=== PATIENT | female | born 1970 | race Caucasian/White ===

== ENCOUNTER 2020-01-21 12:28 | Emergency (ER) | payer MEDICARE, MEDICAID ==
[~2020-01-21] VITALS: Ht 167.6 cm; Wt 57.3 kg
[2020-01-21] MEDS ORDERED: NICO1DIS10 (12:39)
[2020-01-21] MEDS ORDERED: IBUP-1114 PO (12:39)
[2020-01-21] MEDS ORDERED: PARO20TA3 (12:39)
--- NOTE | 2020-01-21 13:44 | REPVR ---
PROCEDURE INFORMATION: Exam: XR Left Tibia and Fibula Exam date and time: 01/21/2020 12:57 PM Age: 49 years old Clinical indication: Pain; Lower leg; Left TECHNIQUE: Imaging protocol: XR Left tibia and fibula. Views: 2 views. COMPARISON: No relevant prior studies available. FINDINGS: Bones/joints: The visualized osseous structures are unremarkable. No acute fracture or dislocation is seen. The joint space is well maintained and no significant degenerative arthritic changes or erosions or joint effusion is seen. Soft tissues: There is mild soft tissue swelling. No radiopaque foreign body seen. IMPRESSION: No acute fracture or dislocation is seen. Electronically signed by: Keenan Baldwin On 01/21/2020 13:44:47 PM
--- NOTE | 2020-01-21 13:47 | REPVR ---
PROCEDURE INFORMATION: Exam: XR Left Foot Complete Exam date and time: 01/21/2020 12:57 PM Age: 49 years old Clinical indication: Pain; Foot; Left TECHNIQUE: Imaging protocol: XR Left foot. Views: 3 or more views. COMPARISON: No relevant prior studies available. 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 Suspicious chronic healed fractures are also noted involving the base of the 3rd and 5th metatarsals. The remainder of the visualized osseous structures are unremarkable. No acute fracture or dislocation is seen. Soft tissues: There is mild soft tissue swelling. IMPRESSION: 1. 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 Suspicious chronic healed fractures are also noted involving the base of the 3rd and 5th metatarsals. 2. The remainder of the visualized osseous structures are unremarkable. No acute fracture or dislocation is seen. Electronically signed by: Keenan Baldwin On 01/21/2020 13:47:34 PM
[2020-01-21] MEDS ORDERED: ACETAMINOPHEN 500 MG TAB PO ONE (14:15)
[2020-01-21 14:44] LABS: BASO # 0.1 10^3/uL (0.0-0.2); BASO % 0.6 % (0.0-1.0); EOS # 0.1 10^3/uL (0.0-0.5); EOS % 1.1 % (0.0-3.0); HEMOGLOBIN 14.6 g/dl (12.0-15.5); LYMPH # 2.7 10^3/uL (1.5-5.0); LYMPH % 26.6 % (24.0-44.0); MEAN CORPUSCULAR HEMOGLOBIN 31.7 pg (27.0-33.0); MEAN CORPUSCULAR HGB CONC 33.2 g/dl (32.0-36.5); MEAN CORPUSCULAR VOLUME 95.7 fl (80.0-96.0); MONO # 0.7 10^3/uL (0.0-0.8); MONO % 6.6 % (0.0-5.0); NEUTROPHILS # 6.6 10^3/uL (1.5-8.5); NEUTROPHILS % 64.7 % (36.0-66.0); PLATELET COUNT, AUTOMATED 287 10^3/uL (150-450); WHITE BLOOD COUNT 10.2 10^3/uL (4.0-10.0)
--- NOTE | 2020-01-21 15:09 | REPVR ---
PROCEDURE INFORMATION: Exam: XR Left Ankle Exam date and time: 01/21/2020 2:14 PM Age: 49 years old Clinical indication: Injury or trauma; Fall; Sprain or strain; Ankle; Left; Additional info: Left ankle pain/swelling TECHNIQUE: Imaging protocol: XR Left ankle. Views: 3 or more views. COMPARISON: CR Foot, complete LEFT 01/21/2020 1:02 PM FINDINGS: Bones/joints: The visualized osseous structures are unremarkable. No acute fracture or dislocation is seen. There are mild degenerative osteo-arthritic changes with joint space narrowing and osteophyte formation. Soft tissues: There is mild soft tissue swelling. IMPRESSION: No acute fracture or dislocation is seen. Electronically signed by: Keenan Baldwin On 01/21/2020 15:09:34 PM
--- NOTE | 2020-01-21 15:18 | REPVR ---
PROCEDURE INFORMATION: Exam: US Duplex Left Lower Extremity Veins, Limited Exam date and time: 01/21/2020 3:14 PM Age: 49 years old Clinical indication: Pain; Foot; Left; Additional info: R/O dvt TECHNIQUE: Imaging protocol: Real-time Duplex ultrasound of the Left Lower Extremity with 2-D [place] scale, color Doppler flow and spectral waveform analysis with image documentation. Limited exam focused on the left lower extremity veins. COMPARISON: No relevant prior studies available. FINDINGS: Left deep veins: Unremarkable. The common femoral, femoral, proximal profunda femoral and popliteal veins are patent without thrombus. Normal Doppler waveforms. Normal compressibility and/or augmentation response. Left superficial veins: Unremarkable. Saphenofemoral junction is patent without thrombus. Soft tissues: Unremarkable. IMPRESSION: No evidence of deep vein thrombosis. Electronically signed by: Keenan Baldwin On 01/21/2020 15:18:06 PM
[2020-01-21 15:30] LABS: ERYTHROCYTE SEDIMENTATION RATE 12 mm/hr (0-20)
[2020-01-21] MEDS ORDERED: KEFL500C17 PO (15:50)
[2020-01-21 15:59] VITALS: BP 103/73
== END 2020-01-21 16:09 | disposition home or self-care (01) ==
LOC: M ED 12:28
DX: S93.402A Sprain of unspecified ligament of left ankle, initial encounter (principal); S90.32XA Contusion of left foot, initial encounter; L03.116 Cellulitis of left lower limb; W01.0XXA Fall on same level from slipping, tripping and stumbling without subsequent striking against object, initial encounter; Y92.9 Unspecified place or not applicable; Y93.9 Activity, unspecified; Y99.9 Unspecified external cause status; F41.9 Anxiety disorder, unspecified; F17.200 Nicotine dependence, unspecified, uncomplicated; Z87.81 Personal history of (healed) traumatic fracture

== ENCOUNTER → 2022-01-09 | Outpatient (CLI) | payer MEDICARE, MEDICAID ==
[~2022-01-09] MED LIST: GABA-1171; GABA-282 PO; IBUP-1022 PO; IBUP-1114 PO; KEFL500C17 PO; NICO1DIS10; NORC1TAB7 PO; PARO20TA3; PARO20TA4 PO
== END ==
LOC: M WUC 10:05
PROVIDERS: ATTEND Nurse Practitioner Family
DX: K59.00 Constipation, unspecified (principal)

== ENCOUNTER → 2022-01-17 | Outpatient (CLI) | payer MEDICARE, MEDICAID | LOC: M RAD 13:58 | PROVIDERS: ATTEND Nurse Practitioner Family | DX: Z12.2 Encounter for screening for malignant neoplasm of respiratory organs (principal); J43.9 Emphysema, unspecified; F17.200 Nicotine dependence, unspecified, uncomplicated; J47.9 Bronchiectasis, uncomplicated; R91.1 Solitary pulmonary nodule ==

== ENCOUNTER → 2022-02-08 | Outpatient (CLI) | payer MEDICARE, MEDICAID ==
[~2022-02-08] MED LIST changes: +GASTROGRAFIN SOLUTION 30ML (Q9963) As Ordered ONE; +ISOVUE-370 76% 100ML VIAL As Ordered ONE
== END ==
LOC: M RAD 14:46
PROVIDERS: ATTEND Physician Assistant
DX: R91.1 Solitary pulmonary nodule (principal); K44.9 Diaphragmatic hernia without obstruction or gangrene; R10.9 Unspecified abdominal pain; R11.2 Nausea with vomiting, unspecified; K59.00 Constipation, unspecified; K76.0 Fatty (change of) liver, not elsewhere classified; Z90.710 Acquired absence of both cervix and uterus; I25.10 Atherosclerotic heart disease of native coronary artery without angina pectoris; N28.1 Cyst of kidney, acquired
CPT/HCPCS: 74178; Q9963; Q9967

== ENCOUNTER → 2022-02-23 | Outpatient (CLI) | payer MEDICARE, MEDICAID ==
[~2022-02-23] MED LIST changes: +FOLI1TAB11 PO; -GASTROGRAFIN SOLUTION 30ML (Q9963) As Ordered ONE; -ISOVUE-370 76% 100ML VIAL As Ordered ONE; +VITA200032 PO
== END ==
LOC: M LABSMTC 11:07
PROVIDERS: ATTEND Anesthesiology
DX: Z01.812 Encounter for preprocedural laboratory examination (principal); Z20.822 Contact with and (suspected) exposure to COVID-19

== ENCOUNTER 2022-02-28 08:11 | Day surgery (SDC) | payer MEDICARE, MEDICAID ==
[~2022-02-28] VITALS: Ht 170.2 cm; Wt 57.2 kg
[~2022-02-28 08:11] MED LIST changes: +LIDOCAINE 2% 100MG/5ML SDV (FOR ANES.) As Ordered ONE; +NS 1,000 ML IV ONE; +propofoL 200 MG/20 ML VIAL As Ordered ONE
[2022-02-28] MEDS ORDERED: ECOT81TA5 PO (08:32)
[2022-02-28 10:31] VITALS: BP 140/79
== END 2022-02-28 10:32 | disposition home or self-care (01) ==
LOC: M OPP 08:11
PROVIDERS: ATTEND Surgery
DX: D12.6 Benign neoplasm of colon, unspecified (principal); K62.1 Rectal polyp; K62.89 Other specified diseases of anus and rectum; K29.60 Other gastritis without bleeding; Z80.0 Family history of malignant neoplasm of digestive organs; K59.00 Constipation, unspecified; R63.4 Abnormal weight loss; R11.2 Nausea with vomiting, unspecified; Z79.82 Long term (current) use of aspirin; Z79.899 Other long term (current) drug therapy; F17.200 Nicotine dependence, unspecified, uncomplicated; F41.9 Anxiety disorder, unspecified; F32.9 Major depressive disorder, single episode, unspecified; E78.00 Pure hypercholesterolemia, unspecified; Z80.1 Family history of malignant neoplasm of trachea, bronchus and lung; Z80.42 Family history of malignant neoplasm of prostate; Z86.73 Personal history of transient ischemic attack (TIA), and cerebral infarction without residual deficits

== ENCOUNTER → 2022-04-13 | Outpatient (CLI) | payer MEDICARE, MEDICAID ==
[~2022-04-13] MED LIST changes: +ECOT81TA5 PO; -LIDOCAINE 2% 100MG/5ML SDV (FOR ANES.) As Ordered ONE; -NS 1,000 ML IV ONE; -propofoL 200 MG/20 ML VIAL As Ordered ONE
== END ==
LOC: M WHC 12:32
PROVIDERS: ATTEND Nurse Practitioner Family
DX: Z12.31 Encounter for screening mammogram for malignant neoplasm of breast (principal)

== ENCOUNTER 2022-05-31 09:01 | Emergency (ER) | payer MEDICARE, MEDICAID ==
[~2022-05-31] VITALS: Ht 165.1 cm; Wt 56.4 kg
[2022-05-31] MEDS ORDERED: PANT40TA29 (09:12)
[2022-05-31] MEDS ORDERED: LIDOCAINE 5% OINT 30GM TUBE TOP STA (11:51)
[2022-05-31 11:58] LABS: BASO # 0.1 10^3/uL (0.0-0.2); BASO % 0.5 % (0.0-1.0); EOS # 0.1 10^3/uL (0.0-0.5); EOS % 0.6 % (0.0-3.0); HEMATOCRIT 41.2 % (36.0-47.0); HEMOGLOBIN 13.6 g/dl (12.0-15.5); LYMPH # 1.9 10^3/uL (1.5-5.0); LYMPH % 19.2 % (24.0-44.0); MEAN CORPUSCULAR HEMOGLOBIN 30.2 pg (27.0-33.0); MEAN CORPUSCULAR VOLUME 91.4 fl (80.0-96.0); MONO # 0.5 10^3/uL (0.0-0.8); MONO % 5.3 % (2.0-8.0); NEUTROPHILS # 7.4 10^3/uL (1.5-8.5); NEUTROPHILS % 74.2 % (36.0-66.0); PLATELET COUNT, AUTOMATED 294 10^3/uL (150-450); RED BLOOD COUNT 4.51 10^6/uL (4.00-5.40)
[2022-05-31 12:20] LABS: ERYTHROCYTE SEDIMENTATION RATE 22 mm/hr (0-30)
[2022-05-31 12:26] LABS: BLOOD UREA NITROGEN 7 MG/DL (9-23); CALCIUM LEVEL 8.7 MG/DL (8.5-10.1); CARBON DIOXIDE LEVEL 28 MMOL/L (20-31); CHLORIDE LEVEL 103 MMOL/L (98-107); CREATININE FOR GFR 0.81 MG/DL (0.55-1.30); GLOMERULAR FILTRATION RATE > 60.0 (>51); GLUCOSE, FASTING 101 MG/DL (60-100); POTASSIUM SERUM 4.2 MMOL/L (3.5-5.1); SODIUM LEVEL 136 MMOL/L (136-145)
[2022-05-31] MEDS ORDERED: COLA100C5 PO (13:16)
[2022-05-31 13:47] VITALS: BP 117/75
== END 2022-05-31 13:49 | disposition home or self-care (01) ==
LOC: M ED 09:01
DX: K62.3 Rectal prolapse (principal); F17.200 Nicotine dependence, unspecified, uncomplicated; Z79.82 Long term (current) use of aspirin; Z79.899 Other long term (current) drug therapy

== ENCOUNTER → 2024-06-03 | Outpatient (CLI) | payer MEDICARE, MEDICAID ==
[~2024-06-03] MED LIST changes: +COLA100C5 PO; +GABA-1172 PO; -GABA-282 PO; +PANT40TA29
== END ==
LOC: M WUC 11:13
PROVIDERS: ATTEND Physician Assistant
DX: J06.9 Acute upper respiratory infection, unspecified (principal); R06.02 Shortness of breath; R05.9 Cough, unspecified; J43.9 Emphysema, unspecified; J84.9 Interstitial pulmonary disease, unspecified

== ENCOUNTER 2024-06-11 05:27 | Inpatient (IN) | payer MEDICARE, MEDICAID ==
[~2024-06-11] VITALS: Ht 167.6 cm; Wt 59.0 kg
[~2024-06-11 05:27] MED LIST changes: -PANT40TA29; +PANT40TA29 PO
[2024-06-11] MEDS: IPRATROPIUM 0.5MG/ALBUTEROL 2.5MG INH SOL UD 3ML (DUONEB) NEB ONE ×2 (05:59)
[2024-06-11 06:07] LABS: VENOUS BASE EXCESS 0.5 (-2.0-2.0); VENOUS HCO3 27.2 MMOL/L (23.0-27.0); VENOUS O2 SATURATION 84.8 % (60.0-80.0); VENOUS PARTIAL PRESSURE CO2 50.7 mmHg (38.0-50.0); VENOUS PH 7.347 UNITS (7.330-7.430); VENOUS STANDARD HCO3 24.6 MMOL/L; VENOUS TOTAL CO2 28.7 MMOL/L (24.0-28.0)
[2024-06-11] MEDS: methylPREDNISolone 125MG 2ML VIAL IV ONE (06:09)
[2024-06-11] MEDS ORDERED: ISOVUE-370 76% 100ML VIAL As Ordered ONE (06:17)
[2024-06-11 06:20] LABS: BASO % 0.2 % (0.0-1.0); HEMATOCRIT 47.2 % (36.0-47.0); HEMOGLOBIN 16.1 g/dl (12.0-15.5); LYMPH % 4.4 % (24.0-44.0); MEAN CORPUSCULAR HEMOGLOBIN 33.2 pg (27.0-33.0); MEAN CORPUSCULAR HGB CONC 34.1 g/dl (32.0-36.5); MEAN CORPUSCULAR VOLUME 97.3 fl (80.0-96.0); MONO # 1.2 10^3/uL (0.0-0.8); MONO % 5.5 % (2.0-8.0); NEUTROPHILS # 19.3 10^3/uL (1.5-8.5); NEUTROPHILS % 88.2 % (36.0-66.0); PLATELET COUNT, AUTOMATED 368 10^3/uL (150-450); RED BLOOD COUNT 4.85 10^6/uL (4.00-5.40); WHITE BLOOD COUNT 21.8 10^3/uL (4.0-10.0)
[2024-06-11 06:41] LABS: BLOOD UREA NITROGEN 7 MG/DL (9-23); CALCIUM LEVEL 8.6 MG/DL (8.5-10.1); CARBON DIOXIDE LEVEL 28 MMOL/L (20-31); CHLORIDE LEVEL 99 MMOL/L (98-107); CREATININE FOR GFR 0.59 MG/DL (0.55-1.30); GLOMERULAR FILTRATION RATE > 60.0 (>51); GLUCOSE, FASTING 116 MG/DL (60-100); MAGNESIUM LEVEL 1.5 MG/DL (1.8-2.4); POTASSIUM SERUM 4.5 MMOL/L (3.5-5.1); SODIUM LEVEL 135 MMOL/L (136-145)
[2024-06-11] MEDS: NS (Normal Saline) 0.9% 1,000 ML IV ONE ×2 (07:05→08:00)
[2024-06-11] MEDS: AZITHROMYCIN 250MG TABLET PO ONE (07:23)
[2024-06-11] MEDS: cefTRIAXone SOD 1 GM in DEXTROSE 5% (D5W) ADV/MINI-BAG 50 ML IV ONE (07:24)
[2024-06-11] MEDS: MAG SULF 1GM/100ML (MAG RUN) 1 GM in IV 1 EA IV ONE (07:59)
[2024-06-11] MEDS: OSELTAMIVIR PHOSPHATE 75 MG CAP PO ONE (08:00)
[2024-06-11] MEDS ORDERED: VENTAER INH (08:06)
[2024-06-11] MEDS ORDERED: HOME MED LIST COMPLETE! XX SCH (08:10)
[2024-06-11] MEDS ORDERED: OSELTAMIVIR PHOSPHATE 75 MG CAP PO ONE (09:00)
[2024-06-11] MEDS: ASPIRIN 81MG ENTERIC TABLET PO SCH (10:29)
[2024-06-11] MEDS: PANTOPRAZOLE 40MG TAB (PROTONIX) PO SCH (10:29)
[2024-06-11] MEDS: MAGNESIUM OXIDE 400MG TAB (MAG-OX) PO SCH (10:29)
[2024-06-11] MEDS: PARoxetine 20MG TABLET PO SCH (10:29)
[2024-06-11 11:07] LABS: INR 0.91; PARTIAL THROMBOPLASTIN TIME 31.1 SECONDS (24.8-34.2); PROTHROMBIN TIME 12.6 SECONDS (12.5-14.5)
[2024-06-11 11:11] LABS: ALBUMIN 2.5 G/DL (3.2-5.2); ALKALINE PHOSPHATASE 134 U/L (35-104); ALT/SGPT 16 U/L (7.0-40); AST/SGOT 9 U/L (<34); BILIRUBIN,TOTAL 0.5 MG/DL (0.3-1.2); BLOOD UREA NITROGEN 6 MG/DL (9-23); CALCIUM LEVEL 8.5 MG/DL (8.5-10.1); CARBON DIOXIDE LEVEL 28 MMOL/L (20-31); CHLORIDE LEVEL 101 MMOL/L (98-107); CREATININE FOR GFR 0.53 MG/DL (0.55-1.30); GLOMERULAR FILTRATION RATE > 60.0 (>51); GLUCOSE, FASTING 129 MG/DL (60-100); POTASSIUM SERUM 4.4 MMOL/L (3.5-5.1); SODIUM LEVEL 136 MMOL/L (136-145); TOTAL PROTEIN 6.3 G/DL (5.7-8.2)
[2024-06-11 11:22] LABS: PROCALCITONIN 27.17 ng/ml
[2024-06-11] MEDS: NICOTINE 21MG/24HR 1 EA TRANSDERMAL TD SCH (11:26)
[2024-06-11] MEDS: NS (Normal Saline) 0.9% 1,000 ML IV SCH (11:26)
[2024-06-11] MEDS: LEVALBUTEROL 1.25MG 0.5ML CONCENTRATE NEB NEB SCH (11:41)
[2024-06-11] MEDS: OSELTAMIVIR PHOSPHATE 75 MG CAP PO SCH (20:53)
[2024-06-11 21:47] VITALS: BP 144/90; TEMP 98.4; O2SAT 92
[2024-06-12] VITALS (9 sets, daily range): BP systolic 115–124; BP diastolic 72–87; TEMP 97.5–98.6; O2SAT 78–94
[2024-06-12] MEDS: cefTRIAXone SOD 1 GM in DEXTROSE 5% (D5W) ADV/MINI-BAG 50 ML IV SCH (06:27)
[2024-06-12 07:51] LABS: HEMATOCRIT 44.7 % (36.0-47.0); HEMOGLOBIN 14.9 g/dl (12.0-15.5); MEAN CORPUSCULAR HEMOGLOBIN 33.1 pg (27.0-33.0); MEAN CORPUSCULAR HGB CONC 33.3 g/dl (32.0-36.5); MEAN CORPUSCULAR VOLUME 99.3 fl (80.0-96.0); PLATELET COUNT, AUTOMATED 304 10^3/uL (150-450); WHITE BLOOD COUNT 15.7 10^3/uL (4.0-10.0)
[2024-06-12 08:11] LABS: ALBUMIN 2.2 G/DL (3.2-5.2); ALKALINE PHOSPHATASE 116 U/L (35-104); ALT/SGPT 15 U/L (7.0-40); AST/SGOT 15 U/L (<34); BILIRUBIN,TOTAL 0.4 MG/DL (0.3-1.2); BLOOD UREA NITROGEN < 5 MG/DL (9-23); CALCIUM LEVEL 8.2 MG/DL (8.5-10.1); CARBON DIOXIDE LEVEL 26 MMOL/L (20-31); CHLORIDE LEVEL 108 MMOL/L (98-107); CREATININE FOR GFR 0.53 MG/DL (0.55-1.30); GLOMERULAR FILTRATION RATE > 60.0 (>51); GLUCOSE, FASTING 82 MG/DL (60-100); MAGNESIUM LEVEL 1.8 MG/DL (1.8-2.4); POTASSIUM SERUM 4.7 MMOL/L (3.5-5.1); SODIUM LEVEL 141 MMOL/L (136-145); TOTAL PROTEIN 5.9 G/DL (5.7-8.2)
[2024-06-12] MEDS: DOXYCYCLINE HYCLATE 100MG TABLET PO SCH (09:25)
[2024-06-12] MEDS: ENOXAPARIN 40MG/0.4ML SYRINGE (J1650 PER 10MG) SC SCH (09:26)
[2024-06-12] MEDS: ACETAMINOPHEN 325 MG TAB PO PRN (20:12)
[2024-06-13] VITALS (7 sets, daily range): BP systolic 108–118; BP diastolic 72–87; TEMP 97.3–97.7; O2SAT 90–96
[2024-06-13] MEDS: LEVALBUTEROL 1.25MG 0.5ML CONCENTRATE NEB NEB PRN (03:27)
[2024-06-13 06:26] LABS: HEMATOCRIT 37.8 % (36.0-47.0); MEAN CORPUSCULAR HEMOGLOBIN 33.4 pg (27.0-33.0); MEAN CORPUSCULAR HGB CONC 33.6 g/dl (32.0-36.5); MEAN CORPUSCULAR VOLUME 99.5 fl (80.0-96.0); PLATELET COUNT, AUTOMATED 279 10^3/uL (150-450); WHITE BLOOD COUNT 11.8 10^3/uL (4.0-10.0)
[2024-06-13 06:28] LABS: HEMOGLOBIN 12.7 g/dl (12.0-15.5)
[2024-06-13 06:43] LABS: ALBUMIN 1.9 G/DL (3.2-5.2); ALKALINE PHOSPHATASE 93 U/L (35-104); ALT/SGPT < 9 U/L (7.0-40); AST/SGOT < 8 U/L (<34); BILIRUBIN,TOTAL 0.4 MG/DL (0.3-1.2); BLOOD UREA NITROGEN 9 MG/DL (9-23); CALCIUM LEVEL 7.9 MG/DL (8.5-10.1); CARBON DIOXIDE LEVEL 32 MMOL/L (20-31); CHLORIDE LEVEL 104 MMOL/L (98-107); CREATININE FOR GFR 0.55 MG/DL (0.55-1.30); GLOMERULAR FILTRATION RATE > 60.0 (>51); GLUCOSE, FASTING 94 MG/DL (60-100); MAGNESIUM LEVEL 1.8 MG/DL (1.8-2.4); SODIUM LEVEL 141 MMOL/L (136-145); TOTAL PROTEIN 5.2 G/DL (5.7-8.2)
[2024-06-13 13:48] LABS: PROCALCITONIN 3.84 ng/ml
[2024-06-13] MEDS: methylPREDNISolone 125MG 2ML VIAL IV ONE (13:54)
[2024-06-14] VITALS (9 sets, daily range): BP systolic 106–108; BP diastolic 75–77; TEMP 97.2–97.3; O2SAT 83–95
[2024-06-14 06:25] LABS: HEMATOCRIT 37.6 % (36.0-47.0); HEMOGLOBIN 12.7 g/dl (12.0-15.5); MEAN CORPUSCULAR HEMOGLOBIN 33.6 pg (27.0-33.0); MEAN CORPUSCULAR HGB CONC 33.8 g/dl (32.0-36.5); MEAN CORPUSCULAR VOLUME 99.5 fl (80.0-96.0); PLATELET COUNT, AUTOMATED 267 10^3/uL (150-450); RED BLOOD COUNT 3.78 10^6/uL (4.00-5.40); WHITE BLOOD COUNT 7.2 10^3/uL (4.0-10.0)
[2024-06-14 06:52] LABS: ALKALINE PHOSPHATASE 84 U/L (35-104); ALT/SGPT < 9 U/L (7.0-40); AST/SGOT < 8 U/L (<34); BILIRUBIN,TOTAL 0.3 MG/DL (0.3-1.2); BLOOD UREA NITROGEN 10 MG/DL (9-23); CALCIUM LEVEL 8.3 MG/DL (8.5-10.1); CARBON DIOXIDE LEVEL 33 MMOL/L (20-31); CHLORIDE LEVEL 105 MMOL/L (98-107); CREATININE FOR GFR 0.52 MG/DL (0.55-1.30); GLOMERULAR FILTRATION RATE > 60.0 (>51); GLUCOSE, FASTING 104 MG/DL (60-100); POTASSIUM SERUM 4.4 MMOL/L (3.5-5.1); SODIUM LEVEL 142 MMOL/L (136-145); TOTAL PROTEIN 5.5 G/DL (5.7-8.2)
[2024-06-14] MEDS: predniSONE 20 MG TAB PO SCH (08:53)
[2024-06-14] MEDS ORDERED: PRED20TA PO (11:49)
[2024-06-14] MEDS ORDERED: CEFD300CAP PO (11:49)
[2024-06-14] MEDS ORDERED: NICO21PAT TD (11:49)
[2024-06-14] MEDS ORDERED: MAGN400T2 PO (11:49)
== END 2024-06-14 16:16 | disposition home or self-care (01) | DRG 871 ==
LOC: M ED 05:27 → M ED INP 08:47 → M MS4PR 21:45 → M MSPAV 06-12 14:39
PROVIDERS: ADMIT Internal Medicine; ATTEND Internal Medicine
DX: A41.9 Sepsis, unspecified organism (principal); J10.00 Influenza due to other identified influenza virus with unspecified type of pneumonia; J96.01 Acute respiratory failure with hypoxia; J15.9 Unspecified bacterial pneumonia; F17.200 Nicotine dependence, unspecified, uncomplicated; F41.9 Anxiety disorder, unspecified; F32.A Depression, unspecified; K21.9 Gastro-esophageal reflux disease without esophagitis; E83.42 Hypomagnesemia; E78.5 Hyperlipidemia, unspecified; Z79.52 Long term (current) use of systemic steroids; Z90.79 Acquired absence of other genital organ(s); Z79.899 Other long term (current) drug therapy; Z79.82 Long term (current) use of aspirin

== ENCOUNTER 2024-07-24 11:39 | Emergency (ER) | payer MEDICARE, MEDICAID ==
[~2024-07-24] VITALS: Ht 167.6 cm; Wt 67.7 kg
[~2024-07-24 11:39] MED LIST changes: +CEFD300CAP PO; +MAGN400T2 PO; +NICO21PAT TD; +PRED20TA PO; +VENTAER INH
[2024-07-24 11:56] VITALS: TEMP 97.3
[2024-07-24 13:46] LABS: KETONE, URINE AUTO RFX NEGATIVE (NEGATIVE); LEUKOCYTE ESTERASE UR AUTO RFX NEGATIVE (NEGATIVE); NITRITE, URINE AUTO RFX NEGATIVE (NEGATIVE); RBC, URINE AUTO RFX 1 /HPF (0-3); SQUAM EPITHELIAL CELL UR AURFX 1 /HPF (0-6); WBC, URINE AUTO RFX 0 /HPF (0-3)
[2024-07-24 13:52] LABS: BASO # 0.1 10^3/uL (0.0-0.2); BASO % 0.8 % (0.0-1.0); EOS # 0.1 10^3/uL (0.0-0.5); EOS % 1.1 % (0.0-3.0); HEMATOCRIT 41.8 % (36.0-47.0); HEMOGLOBIN 13.8 g/dl (12.0-15.5); LYMPH # 1.6 10^3/uL (1.5-5.0); MEAN CORPUSCULAR HEMOGLOBIN 33.4 pg (27.0-33.0); MEAN CORPUSCULAR VOLUME 101.2 fl (80.0-96.0); MONO # 0.6 10^3/uL (0.0-0.8); NEUTROPHILS # 8.2 10^3/uL (1.5-8.5); NEUTROPHILS % 76.7 % (36.0-66.0); PLATELET COUNT, AUTOMATED 319 10^3/uL (150-450); RED BLOOD COUNT 4.13 10^6/uL (4.00-5.40); WHITE BLOOD COUNT 10.7 10^3/uL (4.0-10.0)
[2024-07-24 14:15] LABS: ALBUMIN 3.6 G/DL (3.2-5.2); ALKALINE PHOSPHATASE 90 U/L (35-104); ALT/SGPT 15 U/L (7.0-40); AST/SGOT 14 U/L (<34); BILIRUBIN,DIRECT 0.1 MG/DL (<0.4); BILIRUBIN,TOTAL 0.4 MG/DL (0.3-1.2); BLOOD UREA NITROGEN 14 MG/DL (9-23); CALCIUM LEVEL 9.6 MG/DL (8.5-10.1); CARBON DIOXIDE LEVEL 32 MMOL/L (20-31); CHLORIDE LEVEL 102 MMOL/L (98-107); CREATININE FOR GFR 0.85 MG/DL (0.55-1.30); GLOMERULAR FILTRATION RATE > 60.0 (>51); GLUCOSE, FASTING 87 MG/DL (60-100); POTASSIUM SERUM 4.9 MMOL/L (3.5-5.1); SODIUM LEVEL 139 MMOL/L (136-145); TOTAL PROTEIN 6.8 G/DL (5.7-8.2)
[2024-07-24] MEDS ORDERED: ISOVUE-370 76% 100ML VIAL As Ordered ONE (14:41)
[2024-07-24 14:44] LABS: INR 0.89; PROTHROMBIN TIME 12.4 SECONDS (12.5-14.5)
[2024-07-24 16:30] VITALS: BP 134/77; O2SAT 91
[2024-07-24 16:41] VITALS: O2SAT 90
[2024-07-24] MEDS ORDERED: CEPH500C PO (16:43)
== END 2024-07-24 17:11 | disposition home or self-care (01) ==
LOC: M ED 11:39 → EDBD 11:39 → M ED 17:11
DX: L03.116 Cellulitis of left lower limb (principal); S22.060A Wedge compression fracture of T7-T8 vertebra, initial encounter for closed fracture; K21.9 Gastro-esophageal reflux disease without esophagitis; J44.9 Chronic obstructive pulmonary disease, unspecified; F41.9 Anxiety disorder, unspecified; F32.A Depression, unspecified; Z87.891 Personal history of nicotine dependence; Z79.82 Long term (current) use of aspirin; Z79.52 Long term (current) use of systemic steroids; Z79.1 Long term (current) use of non-steroidal anti-inflammatories (NSAID)
CPT/HCPCS: 36415; 71045; 71275; 80048; 80076; 81001; 83605; 83880; 85025; 85610; 87040; 93005; 93041; 93971; 94760; 99285; Q9967

== ENCOUNTER → 2024-08-21 | Outpatient (CLI) | payer MEDICARE, MEDICAID ==
[~2024-08-21] MED LIST changes: +CEPH500C PO
== END ==
LOC: M WHC 10:51
PROVIDERS: ATTEND Orthopaedic Surgery
DX: M85.89 Other specified disorders of bone density and structure, multiple sites (principal)

== ENCOUNTER → 2024-11-04 | Outpatient (CLI) | payer MEDICARE, MEDICAID ==
[2024-11-04 11:41] LABS: ALT/SGPT < 9 U/L (7.0-40); AST/SGOT 12 U/L (<34); CALCIUM LEVEL 8.9 MG/DL (8.5-10.1); CARBON DIOXIDE LEVEL 28 MMOL/L (20-31); CHLORIDE LEVEL 102 MMOL/L (98-107); CREATININE FOR GFR 0.83 MG/DL (0.55-1.30); GLOMERULAR FILTRATION RATE 84.2 (>51); POTASSIUM SERUM 4.7 MMOL/L (3.5-5.1); PTH INTACT 79.4 PG/ML (18.5-88.0); SODIUM LEVEL 138 MMOL/L (136-145)
[2024-11-04 11:42] LABS: FREE T4 1.02 NG/DL (0.89-1.76); THYROXINE (T4) 8.3 UG/DL (4.5-10.9)
[2024-11-04 11:43] LABS: TOTAL 25(OH) VITAMIN D 37.2 NG/ML (20.0-100.0)
== END ==
LOC: M LAB 09:53
PROVIDERS: ATTEND Nurse Practitioner Family
DX: M81.0 Age-related osteoporosis without current pathological fracture (principal); E07.9 Disorder of thyroid, unspecified